=== PATIENT | male | born 1995 | race Caucasian/White ===

== ENCOUNTER 2016-08-21 17:55 | Emergency (ER) | payer BC, OTHER ==
[2016-08-21] MEDS ORDERED: IBUPROFEN 600 MG TABLET (FP) PO ONE (17:57)
[2016-08-21] MEDS ORDERED: CYCLOBENZAPRINE HCL 10 MG TABLET (FP) PO ONE (17:57)
[2016-08-21 18:03] VITALS: BP 144/97; PULSE 81; TEMP 98.2; BMI 26.9
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
== END 2016-08-21 18:54 | disposition home or self-care (01) ==
LOC: FER 17:55
DX: M54.6 Pain in thoracic spine (principal); V43.51XA Car driver injured in collision with sport utility vehicle in traffic accident, initial encounter; Y92.414 Local residential or business street as the place of occurrence of the external cause; Y93.89 Activity, other specified
CPT/HCPCS: 71020-TC; 71101-TC; 99282-25

== ENCOUNTER 2023-05-22 11:00 | Emergency (ER) | payer BC, OTHER ==
[2023-05-22 11:15] VITALS: BP 136/91; PULSE 75; RESP 18; TEMP 98.4; BMI 28.0
[2023-05-22] MEDS ORDERED: CLINDAMYCIN HCL 300 MG CAPSULE PO ONE (11:20)
[2023-05-22] MEDS ORDERED: CLINDAMYCIN HCL 150 MG CAPSULE (FP) ONE (11:35)
== END 2023-05-22 11:47 | disposition home or self-care (01) ==
LOC: FER 11:00
PROC: 0H91XZZ Drainage of Face Skin, External Approach (ICD-10-PCS; principal; 2023-05-22)
DX: R22.0 Localized swelling, mass and lump, head (principal); R51.9 Headache, unspecified; L02.811 Cutaneous abscess of head [any part, except face]; L03.211 Cellulitis of face
CPT/HCPCS: 99283-25

== ENCOUNTER 2023-07-09 10:03 | Emergency (ER) | payer OTHER, BC ==
[2023-07-09 10:19] VITALS: BP 133/83; PULSE 77; RESP 20; TEMP 98.2; BMI 28.0
[2023-07-09] MEDS ORDERED: DIPHTH,PERTUSS(ACELL),TET 0.5 ML DISP.SYRIN IM ONE (10:32)
[2023-07-09] MEDS: DIPHTH,PERTUSS(ACELL),TET 0.5 ML DISP.SYRIN IM ONE (10:38)
[2023-07-09] MEDS: IBUPROFEN 600 MG TABLET (FP) PO ONE (10:39)
[2023-07-09] MEDS ORDERED: IBUPROFEN 600 MG TABLET (FP) PO ONE (10:41)
== END 2023-07-09 11:06 | disposition home or self-care (01) ==
LOC: FER 10:03
PROC: 3E0234Z Introduction of Serum, Toxoid and Vaccine into Muscle, Percutaneous Approach (ICD-10-PCS; principal; 2023-07-09)
DX: S60.512A Abrasion of left hand, initial encounter (principal); W26.8XXA Contact with other sharp object(s), not elsewhere classified, initial encounter
CPT/HCPCS: 73130-TC-LT-FY; 90715; 99283-25

== ENCOUNTER 2025-01-08 15:56 | Emergency (ER) | payer OTHER ==
[2025-01-08 16:01] VITALS: BP 139/104; PULSE 97; RESP 18; TEMP 98.1; BMI 29.5
[2025-01-08] MEDS ORDERED: IBUPROFEN 600 MG TABLET (FP) PO ONE (16:05)
[2025-01-08] MEDS: IBUPROFEN 600 MG TABLET (FP) PO ONE (16:06)
== END 2025-01-08 17:16 | disposition home or self-care (01) ==
LOC: FER 15:56
PROC: 2W3EX1Z Immobilization of Right Hand using Splint (ICD-10-PCS; principal; 2025-01-08)
DX: S63.614A Unspecified sprain of right ring finger, initial encounter (principal); S63.616A Unspecified sprain of right little finger, initial encounter; Y35.811A Legal intervention involving manhandling, law enforcement official injured, initial encounter
CPT/HCPCS: 73130-TC-RT-FY; 73140-TC-RT-FY; 99283-25